=== PATIENT | female | born 1975 | race Caucasian/White ===

== ENCOUNTER 2017-04-16 06:29 | Day surgery (SDC) | payer BC ==
[2017-04-16] MEDS ORDERED: Sodium Chloride 0.9% 1,000 ML IV SCH (07:00)
[2017-04-16] MEDS ORDERED: fentaNYL 100 MCG/2 ML SDV ONE ×2 (07:36→08:11)
[2017-04-16] MEDS ORDERED: Midazolam 1 MG/ML 2 ML SDV ONE (07:36)
[2017-04-16] MEDS ORDERED: Propofol 200 MG/20 ML SDV ONE (07:36)
[2017-04-16] MEDS ORDERED: diphenhydrAMINE 25 MG Cap PO PRN (08:56)
[2017-04-16 10:20] VITALS: BP 116/84
--- NOTE | 2017-04-16 15:16 | PROC ---
DATE OF PROCEDURE: 04/16/2017 INDICATION: This is a 42-year-old female who has had trouble swallowing foods. She feels full almost immediately when she eats, feels there is something in the stomach and feels that she is bloated continually. The risks and benefits were explained to her for an esophagogastroduodenoscopy. DESCRIPTION OF PROCEDURE: The anesthesia was given by nurse renal medicine physician. The Olympus 180 scope was used, was placed into the pharynx and the esophagus without difficulty and advanced under direct vision into the body of the stomach. Immediately, we noted a large bezoar that involved the entire stomach, was unable to visualize any mucosa because of the retained food matter. The patient then went into respiratory arrest with low oxygen saturation, and the tube was removed. We did use an Ambu bag and oxygen, and she came right back and started to breathe without difficulty. Her heart remained in the 40s throughout the entire time. PREOPERATIVE DIAGNOSIS: Abdominal pain. POSTOPERATIVE DIAGNOSIS: Large bezoar. PLAN: I will put her on an anti-bezoar diet and consider Reglan as well. We will re- evaluate in the office. Marcial Shelby MD /[id number]
== END 2017-04-16 11:05 | disposition home or self-care (01) ==
LOC: JP.SDS 06:29
PROVIDERS: ATTEND Internal Medicine
DX: T18.2XXA Foreign body in stomach, initial encounter (principal); K21.9 Gastro-esophageal reflux disease without esophagitis; K22.4 Dyskinesia of esophagus; E66.9 Obesity, unspecified
CPT/HCPCS: 43235; A9270; J2704; J3010; J7040; J2250

== ENCOUNTER 2017-12-19 15:54 | Emergency (ER) | payer BC ==
[2017-12-19 16:20] VITALS: BP 128/87
--- NOTE | 2017-12-19 17:02 | EDM.PDOC ---
ED HPI GENERAL MEDICAL PROBLEM - General Chief Complaint: ENT Problem Stated Complaint: SORE THROAT Time Seen by Provider: 12/19/17 16:59 Source of Information: Reports: Patient, RN Notes Reviewed History Limitations: Reports: No Limitations - History of Present Illness INITIAL COMMENTS - FREE TEXT/NARRATIVE: 42-year-old female presents to the emergency department day complaint of sore throat, she's been ill for about 24 hours has not had any fevers no significant cough Throat Pain Score (Numeric/FACES): 1 - Related Data Allergies Allergy/AdvReac Type Severity Reaction Status Date / Time amoxicillin [Amoxicillin] Allergy Intermediate Rash Verified 12/19/17 16:28 Sulfa (Sulfonamide Allergy Intermediate Rash Verified 12/19/17 16:28 Antibiotics) azithromycin [From Zithromax] Allergy Pain Verified 12/19/17 16:28 Home Meds: Home Meds Citalopram Hydrobromide [Celexa] 40 mg PO DAILY 06/05/13 [History] EPINEPHrine [Epipen] 0.3 mg IM ASDIRECTED PRN #1 pen 11/19/13 [Rx] Losartan Potassium 50 mg PO DAILY 04/14/17 [History] Polyethylene Glycol 3350 [MiraLAX] 17 gm PO DAILY 04/14/17 [History] Psyllium with Sucrose [Metamucil] 1 dose PO DAILY 12/19/17 [History] Past Medical History HEENT History: Reports: Impaired Vision, Otitis Media Cardiovascular History: Reports: Hypertension Respiratory History: Reports: Sleep Apnea Gastrointestinal History: Reports: Chronic Constipation, GERD 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: , Prolapsed Uterus Musculoskeletal History: Reports: Other (See Below) Other Musculoskeletal History: "hypermobile, very loose joints" Neurological History: Reports: Migraines Psychiatric History: Reports: Anxiety Dermatologic History: Reports: None - Infectious Disease History Infectious Disease History: Reports: Chicken Pox - Past Surgical History HEENT Surgical History: Reports: Adenoidectomy, Tonsillectomy GI Surgical History: Reports: Cholecystectomy Female Surgical History: Reports: Hysterectomy Dermatological Surgical History: Reports: Skin Biopsy Social & Family History - Family History Family Medical History: Noncontributory - Tobacco Use Smoking Status *Q: Never Smoker Second Hand Smoke Exposure: No - Caffeine Use Caffeine Use: Reports: Coffee, Soda - Alcohol Use Days Per Week of Alcohol Use: 0 - Recreational Drug Use Recreational Drug Use: No ED ROS ENT - Review of Systems Review Of Systems: See Below Constitutional: Reports: No Symptoms HEENT: Reports: Throat Pain Respiratory: Reports: No Symptoms Cardiovascular: Reports: No Symptoms GI/Abdominal: Reports: No Symptoms ED EXAM, ENT - Physical Exam Exam: See Below Exam Limited By: No Limitations General Appearance: Alert, WD/WN, No Apparent Distress Mouth/Throat: Normal Inspection, Normal Gums, Normal Lips, Normal Oropharynx, Normal Teeth Head: Atraumatic, Normocephalic Neck: Normal Inspection, Supple, Non-Tender, Full Range of Motion Respiratory/Chest: No Respiratory Distress, Lungs Clear, Normal Breath Sounds, No Accessory Muscle Use Cardiovascular: Regular Rate, Rhythm, No Murmur Course - Vital Signs Last Recorded V/S: Last Vital Signs Temp 96.6 F 12/19/17 16:27 Pulse 69 12/19/17 16:27 Resp 16 12/19/17 16:27 BP 128/87 12/19/17 16:27 Pulse Ox 96 12/19/17 16:27 - Orders/Labs/Meds Orders: Active Orders 24 hr Category Date Time Status STREP SCRN A RAPID W CULT CONF [RM] Stat Lab 12/19/17 15:58 Ordered Departure - Departure Time of Disposition: 17:01 Disposition: Home, Self-Care 01 Condition: Good Clinical Impression: Sore throat - Discharge Information Referrals: Marcial Shelby Sr, MD [Primary Care Provider] - Additional Instructions: Recommend symptomatic care, Please followup with your primary care provider in 3-5 days if not better, please call return to the emergency department with worsening of symptoms. - My Orders Last 24 Hours: My Active Orders 12/19/17 15:58 STREP SCRN A RAPID W CULT CONF [RM] Stat - Assessment/Plan Last 24 Hours: My Active Orders 12/19/17 15:58 STREP SCRN A RAPID W CULT CONF [RM] Stat Plan: Assessment Acuity = acute Site and laterality = sore throat Etiology = probable viral syndrome Manifestations = none Location of injury = Home Lab values = none Plan Recommend symptomatic care at this time, follow-up with primary care in 3-5 days if no improvement This note was dictated using [email or web address] voice recognition software please call with any questions on syntax or [email or web address].
== END 2017-12-19 17:09 | disposition home or self-care (01) ==
LOC: JP.ED 15:54
DX: J02.9 Acute pharyngitis, unspecified (principal); I10 Essential (primary) hypertension; K21.9 Gastro-esophageal reflux disease without esophagitis; Z90.710 Acquired absence of both cervix and uterus; Z88.1 Allergy status to other antibiotic agents; Z88.2 Allergy status to sulfonamides; Z79.899 Other long term (current) drug therapy
CPT/HCPCS: 99283